=== PATIENT | male | born 1980 | race Caucasian/White ===

== ENCOUNTER 2022-07-11 19:34 | Emergency (ER) | payer OTHER ==
[2022-07-11 19:46] VITALS: BP 148/79
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
[2022-07-11] MEDS ORDERED: HYDROcod/ACET 5/325 Prepack 4 PO STA (20:41)
== END 2022-07-11 20:58 | disposition home or self-care (01) ==
LOC: ED 19:34
DX: S42.022A Displaced fracture of shaft of left clavicle, initial encounter for closed fracture (principal); S80.212A Abrasion, left knee, initial encounter; V19.3XXA Pedal cyclist (driver) (passenger) injured in unspecified nontraffic accident, initial encounter; Y93.55 Activity, bike riding; Y92.821 Forest as the place of occurrence of the external cause
CPT/HCPCS: 99282; 99283